=== PATIENT | female | born 1970 | race Caucasian/White ===

== ENCOUNTER 2019-10-06 09:42 | Emergency (ER) | payer BC, SELFPAY ==
[2019-10-06 09:53] VITALS: BP 127/66; PULSE 83; RESP 16; TEMP 37.7; O2SAT 98
--- NOTE | 2019-10-06 10:39 | ED.URI ---
HPI - URI/Sore Throat General Chief Complaint: Upper Respiratory Infection Stated Complaint: strep test Time Seen by Provider: 10/06/19 10:39 Source: patient and RN notes reviewed Mode of arrival: ambulatory Limitations: no limitations History of Present Illness HPI Narrative: 48 year old female who presents to [facility] care with complaints of noting pus pockets to her tonsils for the past 3 days with some soreness to her throat and is concerned that she may have strep throat. She also states that she has some sinus drainage and has history of some sinus issues and takes daily flonase. Patient denies any known fevers, chills or sweats, denies any cough or respiratory congestion or any shortness of breath.Patient states some soreness to her right inner ear canal with no drainage or any changes in her hearing or fullness. MD elicited complaint: sore throat and other (irritation right ear canal) Pertinent past history: other (sinus) Onset (ago): day(s) (3) Consistency: constant Severity: mild Pain scale (0-10): 2 Description of mucous: clear Able to tolerate fluids by mouth: Yes Exacerbating factors: swallowing Relieving factors: nothing Associated symptoms: rhinorrhea, sore throat and ear pain (right ear canal soreness) Treatments prior to arrival: other (flonase) Related Data Home Medications Medication Instructions Recorded Confirmed bupropion HCl 150 mg PO BID 10/06/19 10/06/19 fluticasone propionate [Flonase 2 spray INTRANASAL DAILY 10/06/19 10/06/19 Allergy Relief] Allergies Allergy/AdvReac Type Severity Reaction Status Date / Time No Known Allergies Allergy Verified 10/06/19 10:14 Review of Systems Review of Systems: Narrative: CONSTITUTIONAL: Denies fever, chills, or sweats. EYES: Denies visual changes, redness, or discharge. ENT states clear rhinorrhea,no congestion or facial pressure,positive sore throat, right ear canal soreness CARDIOVASCULAR: Denies chest pain, palpitations, or edema. RESPIRATORY: Denies cough or dyspnea. GASTROINTESTINAL: Denies abdominal pain, nausea, vomiting, or diarrhea. GENITOURINARY: Denies dysuria or hematuria. SKIN: Denies rash or itching. MUSCULOSKELETAL: Denies back pain, joint pain, or myalgia. NEUROLOGIC: Denies headache, numbness, or weakness. PSYCHIATRIC: Positive history anxiety or depression. All systems reviewed & are unremarkable except as noted in HPI and below PMFSH Past Medical History Medical History (Updated 10/08/19 @ 11:57 by Milana Orozco NP) Breast cancer Surgical History Surgical History (Updated 10/08/19 @ 11:49 by Milana Orozco NP) H/O mastectomy History of breast reconstruction Family History Family History Other Breast cancer Diabetes mellitus Hypertension Social History Social History (Updated 10/08/19 @ 11:52 by Milana Orozco NP) Smoking status: Former smoker Smoking end date: 06/25/19 Living arrangements: with family Gender identity (if verbalized by the patient): Female Comments At time of signature, agree with nursing past medical, surgical, social and family history. There is no relevant family history pertinent to the presenting complaint Exam Narrative: Exam Narrative: GENERAL: Well-appearing, well-nourished, and in no acute distress. HEAD: Normocephalic, atraumatic. EYES: PERRLA and EOMI. ENT: Nares mild red, clear rhinorrhea no epistaxis. Mucous membranes moist.TM's normal with good light reflex, no redness of ear canals or drainage, Throat red with pus pckets to tonsils noted, tonsils enlarged and red, some post nasal drainage noted NECK: Supple.lymphadenopathy CHEST: Clear to auscultation. No respiratory distress.[id number]% on room air HEART: Regular rate and rhythm. No murmur heard. Normal peripheral pulses. ABDOMEN: Soft, nontender, nondistended, normal active bowel sounds. EXTREMITIES: Normal range of motion. No edema. SKIN: Warm, dry, no rash
== END 2019-10-06 11:05 | disposition home or self-care (01) ==
PROVIDERS: Emergency Provider Registered Nurse
DX: J03.90 Acute tonsillitis, unspecified (principal); J06.9 Acute upper respiratory infection, unspecified; Z87.891 Personal history of nicotine dependence; Z85.3 Personal history of malignant neoplasm of breast; Z90.10 Acquired absence of unspecified breast and nipple
CPT/HCPCS: 87081; 87880; 99213; G0463